=== PATIENT | male | born 1980 | race African-American/Black ===

== ENCOUNTER 2020-05-05 06:20 | Emergency (ER) | payer MEDICAID, OTHER ==
[~2020-05-05] VITALS: Ht 188 cm; Wt 93.0 kg
[2020-05-05] MEDS ORDERED: LIDOCAINE HCL 2% 20 ML VIAL ONE (08:23)
[2020-05-05] MEDS: IBUPROFEN 800 MG TABLET PO ONE (09:26)
[2020-05-05] MEDS: NEOMY/BACITRA/POLYMYXIN B OINT UD PACKET TP ONE (09:26)
[2020-05-05] MEDS: SULFAMETH/TRIMETH 800/160 MG TABLET PO ONE (09:26)
[2020-05-05] MEDS: CEphaleXIN 500 MG CAPSULE PO ONE (09:26)
--- NOTE | 2020-05-05 09:26 | NUR ---
Patient discharged to home in stable condition. Written and verbal after care instructions given. Patient verbalizes understanding of instructions. Stressed follow up or return to ER for worsening s/s.
[2020-05-05] MEDS ORDERED: NEOMY/BACITRA/POLYMYXIN B OINT UD PACKET TP ONE ×2 (09:27→09:42)
[2020-05-05] MEDS ORDERED: SULFAMETH/TRIMETH 800/160 MG TABLET ONE (09:27)
[2020-05-05] MEDS ORDERED: IBUPROFEN 800 MG TABLET ONE (09:27)
[2020-05-05] MEDS ORDERED: CEphaleXIN 500 MG CAPSULE ONE (09:27)
== END 2020-05-05 10:00 | disposition home or self-care (01) ==
LOC: ER 06:28
DX: L02.511 Cutaneous abscess of right hand (principal); R03.0 Elevated blood-pressure reading, without diagnosis of hypertension
CPT/HCPCS: 10060; 73130; 99284; J3490; A4663